=== PATIENT | female | born 1960 | race Caucasian/White ===

== ENCOUNTER → 2017-03-02 | Outpatient (CLI) | payer OTHER, MEDICAID | LOC: BRMIMAGING 09:57 | PROVIDERS: ATTEND Internal Medicine | DX: M47.896 Other spondylosis, lumbar region (principal); M19.011 Primary osteoarthritis, right shoulder; M19.012 Primary osteoarthritis, left shoulder; M79.641 Pain in right hand; M79.642 Pain in left hand | CPT/HCPCS: 72100-PO; 73030-PO; 73130-PO ==